=== PATIENT | male | born 1985 | race Caucasian/White ===

== ENCOUNTER 2017-02-28 06:31 | Emergency (ER) | payer SELFPAY ==
[~2017-02-28] VITALS: Ht 175.3 cm; Wt 120.0 kg
[~2017-02-28 06:31] MED LIST: ALBU8.5H8 INH; CEFD300C37 PO; DOXY100T PO; FLUT16SP NAS; FLUT1AER INH; OSEL75CA PO; PRED20TA PO
[2017-02-28 06:38] VITALS: BP 145/95
[2017-02-28] MEDS ORDERED: ALBUTEROL/IPRATROPIUM 2.5MG/0.5MG, 3 ML NPPB ONE (07:30)
[2017-02-28] MEDS ORDERED: ALBUTEROL/IPRATROPIUM 2.5MG/0.5MG, 3 ML ONE (07:38)
== END 2017-02-28 08:26 | disposition home or self-care (01) ==
LOC: ED 07:27
DX: J20.9 Acute bronchitis, unspecified (principal); J45.909 Unspecified asthma, uncomplicated
CPT/HCPCS: 71020; 93005; 94640; 99284; J7512; J7620

== ENCOUNTER 2019-04-24 06:58 | Emergency (ER) | payer MEDICAID ==
[~2019-04-24] VITALS: Ht 177.8 cm; Wt 124.6 kg
[~2019-04-24 06:58] MED LIST changes: -FLUT16SP NAS; +FLUT16SP24 NAS; -OSEL75CA PO; +OSEL75CA26 PO
[2019-04-24 06:59] VITALS: BP 127/76
--- NOTE | 2019-04-24 07:11 | NUR ---
33 Y/O MALE PRESENTS TO ED WITH C/O CONGESTION. PER PT "I FEEL LIKE I HAVE A SINUS INFECTION. IT'S BEEN FOR THE LAST THREE DAYS. I DIDN'T CALL MY PRIMARY CARE." NADN. NO C/O N/V/D, TRAUMA, SYNCOPE, CP, SOB.
--- NOTE | 2019-04-24 08:17 | NUR ---
Patient/Caregiver given discharge instructions and they have confirmed that they understand the instructions. Patient ambulatory with steady gait. pt left with all personal belongings.
== END 2019-04-24 08:19 | disposition home or self-care (01) ==
LOC: ED 08:10
DX: J01.00 Acute maxillary sinusitis, unspecified (principal); J45.909 Unspecified asthma, uncomplicated
CPT/HCPCS: 71046; 87081; 87147; 87880; 99284